=== PATIENT | male | born 1950 | race Caucasian/White ===

== ENCOUNTER → 2020-08-29 | Outpatient (CLI) | payer OTHER ==
[~2020-08-29] MED LIST: ASPIR 8181 MG PO; CARISOPRODOL 3350 MG PO; COZAAR 50 MG TA50 M2 PO; MOBIC15 MG PO; ZOCOR20 MG PO
== END ==
LOC: SJCVCIMAG 09:11
PROVIDERS: ATTEND Internal Medicine
DX: I35.1 Nonrheumatic aortic (valve) insufficiency (principal)